=== PATIENT | female | born 1985 | race Caucasian/White ===

== ENCOUNTER 2019-12-31 22:33 | Emergency (ER) | payer OTHER ==
[~2019-12-31] VITALS: Ht 154.9 cm; Wt 81.7 kg
[~2019-12-31 22:33] MED LIST: CLONAZEPAM 1 MG1 M1 PO; DEPAKOTE ER500 MG PO; DESYREL100 MG PO; FLONASE; IBUPROFEN 800800 M1 PO; IBUPROFEN 800800 MG PO; LEXAPRO 10 MG T10 MG PO; LUNESTA3 MG PO; PRILOSEC 20 MG20 MG PO; RISPERDAL2 MG PO; TESSALON PERLE100 MG PO
[2019-12-31] MEDS ORDERED: ACETAMINOPHEN PO (22:41)
[2020-01-01 01:23] VITALS: BP 110/67
== END 2020-01-01 01:24 | disposition home or self-care (01) ==
LOC: ER 22:33
DX: M54.9 Dorsalgia, unspecified (principal); L97.829 Non-pressure chronic ulcer of other part of left lower leg with unspecified severity; F17.210 Nicotine dependence, cigarettes, uncomplicated; Z79.899 Other long term (current) drug therapy

== ENCOUNTER 2020-03-20 08:54 | Inpatient (IN) | payer OTHER ==
[~2020-03-20] VITALS: Ht 154.9 cm; Wt 76.7 kg
[~2020-03-20 08:54] MED LIST changes: +ACETAMINOPHEN PO
[2020-03-20 08:55] VITALS: BP 120/74
[2020-03-20] MEDS ORDERED: NOHOMEMEDICATIONS (09:07)
[2020-03-20 09:44] LABS: ABSOLUTE NEUTROPHILS 6.3 thou/uL (1.4-8.2); BASOPHILS 0.4 % (0.0-2.0); EOSINOPHILS 0.6 % (0.0-3.0); HEMATOCRIT 36.9 % (37.0-47.0); HEMOGLOBIN 12.3 gm/dL (12.0-15.0); LYMPHOCYTES 16.5 % (24.0-44.0); MCHC 33.4 g/dL (28.0-37.0); MCV 86.7 fL (80.0-100.0); MONOCYTES 14.3 % (1.0-8.0); PLATELET COUNT 250 thou/uL (150-400); POLYS 68.2 % (36.0-66.0); RBC 4.26 mil/uL (4.20-5.00); RDW 13.7 % (10.5-14.5); WBC 9.2 thou/uL (4.0-11.0)
[2020-03-20 09:58] LABS: CALCIUM 8.9 mg/dL (8.5-10.1); CREATININE 0.8 mg/dL (0.6-1.0); POTASSIUM 3.9 mmol/L (3.5-5.1)
[2020-03-20 10:04] LABS: ALBUMIN 3.7 g/dL (3.4-5.0); TOTAL BILIRUBIN 1.1 mg/dL (0.2-1.0); TOTAL PROTEIN 7.4 g/dL (6.4-8.2)
--- NOTE | 2020-03-20 10:25 | NUR ---
PT APPROVED TO TALK WITH RAMON CARDENAS REGARDING HOW PT IS DOING, GIVEN UPDATE AT THIS TIME
[2020-03-20 15:02] VITALS: BP 105/64
--- NOTE | 2020-03-20 15:24 | NUR ---
TRIED TO CALL REPORT, WAS ADVISED THE NURSE WENT TO LUNCH AND WILL CB IN '15 MINUTES'
[2020-03-20 15:27] VITALS: BP 105/64
[2020-03-20 15:50] VITALS: BP 114/75
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
[2020-03-20 20:51] VITALS: BP 110/67
--- NOTE | 2020-03-21 03:31 | NUR ---
ASSESSED AT START OF SHIFT SLEEPING. PT LATER AWOKE AND REQUESTED SOMETHING TO EAT. NIGHT TIME SNACKS PROVIDED. RT LEG KNEE BRACE AND RT ARM BRACE INTACT. MORPHINE GIVEN FOR PAIN. EXT FEMALE CATH BY BEDSIDE. FALL PREC IN PLACE AND CALL LIGHT AT REACH WILL CONT TO MONITOR.
[2020-03-21 04:32] VITALS: BP 99/60
[2020-03-21 07:25] VITALS: BP 103/62
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
[2020-03-21 11:40] VITALS: BP 138/92
[2020-03-21 15:50] VITALS: BP 123/78
[2020-03-21 20:59] VITALS: BP 112/75
--- NOTE | 2020-03-22 05:25 | NUR ---
RECIEVED CARE OF THIS PATIENT AT 1900. PATIENT ALERT AND ORIENTED X4 AT END OF SHIFT, BEGINNING SHE WAS SLEEPY BUT AROUSABLE. BRACE ON BOTH L EXTS. C/O PAIN, MED GIVEN. SLEPT MOST OF NIGHT.
--- NOTE | 2020-03-22 09:37 | NUR ---
ASSUMED CARE AT 0700. PT IS A&O X4. IV IS INTACT AND SHOW NO SIGNS OF REDNESS OR SWELLING. FALL PRECAUTION. CALL LIGHT WITHIN REACH. RA. VERY DROWSY. PT COMPLAINS OF PAIN AND WAS GIVEN MORPHINE. PT FELT DIZZY WITH PHYSICAL THERAPY. BRACE ON RIGHT KNEE AND RIGHT HAND. PT COMPLAINS STATING THAT SHE WANTS TO KNOW WHAT IS GOING ON. SHE DOES NOT WANT TO STAY IF THERE IS NO SURGERY. WILL RELY MESSAGE TO DR. MARTINEZ AND NIGHT NURSE.
[2020-03-22 12:32] LABS: HEMATOCRIT 38.2 % (37.0-47.0); HEMOGLOBIN 12.4 gm/dL (12.0-15.0); MCHC 32.5 g/dL (28.0-37.0); MCV 89.1 fL (80.0-100.0); RBC 4.29 mil/uL (4.20-5.00); RDW 13.9 % (10.5-14.5)
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
[2020-03-22 13:19] VITALS: BP 112/75
[2020-03-22 14:46] VITALS: BP 112/75
--- NOTE | 2020-03-22 14:47 | NUR ---
ON-GOING ASSESSMENT: CM REVIEWED CHART. PT HAS ORDERS TO DISCHARGE HOME TODAY. PT IS NOT DISCHARGED ON ANY MEDCIATION. PT WILL RETURN TO HOME WITH ROOMATES. CM PROVIDED PATIENT WITH CONTACT TO [facility] IF SHE IS NEEDING CONNECTED TO SERVICES AND SHE WILL NEED TO SCHEDULE AN APPT. [facility] CAN BE REACHED AT [phone]. [facility] [facility] SUPPLIED A HEMIWALKER TO PATIENT (CM VOUCHERED). PT HAS A HEALTH RESOURCE PACKET AND SAFETY NET CLINIC NUMBERS/LOCATIONS. CASE CLOSED.
[2020-03-22 15:10] VITALS: BP 112/75
== END 2020-03-22 15:55 | disposition home or self-care (01) | DRG 184 ==
LOC: ER 08:54 → EROBS 14:04 → 4S 16:00
PROVIDERS: Emergency Medicine; Surgery; ADMIT Surgery; ATTEND Surgery
DX: S22.49XA Multiple fractures of ribs, unspecified side, initial encounter for closed fracture (principal); S82.001A Unspecified fracture of right patella, initial encounter for closed fracture; S52.91XA Unspecified fracture of right forearm, initial encounter for closed fracture; Z20.822 Contact with and (suspected) exposure to COVID-19; S52.511A Displaced fracture of right radial styloid process, initial encounter for closed fracture; S36.039A Unspecified laceration of spleen, initial encounter; F41.9 Anxiety disorder, unspecified; F32.9 Major depressive disorder, single episode, unspecified; Z88.8 Allergy status to other drugs, medicaments and biological substances; Z79.899 Other long term (current) drug therapy; V29.9XXA Motorcycle rider (driver) (passenger) injured in unspecified traffic accident, initial encounter; Y93.89 Activity, other specified; Y92.89 Other specified places as the place of occurrence of the external cause; Y99.8 Other external cause status
CPT/HCPCS: 10195